=== PATIENT | male | born 1980 | race American Indian/Alaskan Native ===

== ENCOUNTER 2020-07-30 12:47 | Emergency (ER) | payer SELFPAY ==
[2020-07-30 13:04] VITALS: BP 152/96
--- NOTE | 2020-07-30 13:33 | Emergency Department Report ---
Blank Doc - Documentation Documentation: 39-year-old male that presents with chest pain with SOB. Also has headache, c ough, and loss of smell/taste. This initial assessment/diagnostic orders/clinical plan/treatment(s) is/are subject to change based on patient's health status, clinical progression and re- assessment by fellow clinical providers in the ED. Further treatment and workup at subsequent clinical providers discretion. Patient/guardians urged not to elope from the ED as their condition may be serious if not clinically assessed and managed. Initial orders include: 1- Patient sent to [facility] for further evaluation and treatment 2- cardiac workup
[2020-07-30] MEDS ORDERED: methylPREDNISolone Sod Succinate 125 MG/2 ML INJ IM ONE (14:18)
[2020-07-30] MEDS ORDERED: IPRATROPIUM/ALBUTEROL SULFATE 3 ML AMPUL.NEB IH ONE (14:18)
--- NOTE | 2020-07-30 14:22 | Emergency Department Report ---
- General Chief Complaint: Chest Pain Stated Complaint: POSS COVID Time Seen by Provider: 07/30/20 13:30 Source: patient Mode of arrival: Ambulatory Limitations: No Limitations - History of Present Illness Initial Comments: 39-year-old male with history of tobacco abuse, but otherwise no known significant past medical history presents to the ER today complaint of URI symptoms with cough. Patient states that his symptoms started about 2 days ago. He reports a productive cough with associated shortness of breath, wheezing, chills, diffuse anterior chest pain when he coughs, and diarrhea. He also reports associated rhinorrhea and nasal congestion and headache. Patient denies any ill contacts, no known COVID-19 contacts or recent travel. Patient states he looked up his symptoms on the Internet, and it stated that he had symptoms similar to COVID-19 and therefore came in to get checked. MD Complaint: cough -: Gradual, days(s) (2) - Related Data Previous Rx's Medication Instructions Recorded Last Taken Type Albuterol Mdi (or & Nicu Only) 2 puff IH QID PRN #8.5 gram 07/30/20 Unknown Rx [ProAir HFA Inhaler] Azithromycin [Zithromax Z-MARLEN] 250 mg PO DAILY #5 tab 07/30/20 Unknown Rx Benzonatate [Tessalon Perles] 100 mg PO Q8HR PRN #30 capsule 07/30/20 Unknown Rx predniSONE [Deltasone] 60 mg PO QDAY #12 tab 07/30/20 Unknown Rx Allergies Allergy/AdvReac Type Severity Reaction Status Date / Time No Known Allergies Allergy Unverified 07/30/20 13:01 ED Review of Systems ROS: Stated complaint: POSS COVID Other details as noted in HPI Comment: All other systems reviewed and negative Constitutional: chills. denies: diaphoresis, fever, weakness ENT: congestion, other (Rhinorrhea). denies: throat pain, dental pain, hearing loss, epistaxis Respiratory: cough, shortness of breath, wheezing Cardiovascular: chest pain (With cough) Gastrointestinal: diarrhea. denies: abdominal pain, nausea, vomiting Genitourinary: denies: urgency, dysuria Musculoskeletal: denies: back pain, joint swelling, arthralgia Skin: denies: rash, lesions Neurological: headache Psychiatric: denies: anxiety, depression Hematological/Lymphatic: denies: easy bleeding, easy bruising ED Past Medical Hx - Past Medical History Previous Medical History?: No - Surgical History Past Surgical History?: No - Social History Smoking Status: Current Every Day Smoker Substance Use Type: None - Medications Home Medications: Home Medications Medication Instructions Recorded Confirmed Last Taken Type Albuterol Mdi (or & Nicu Only) 2 puff IH QID PRN #8.5 gram 07/30/20 Unknown Rx [ProAir HFA Inhaler] Azithromycin [Zithromax Z-MARLEN] 250 mg PO DAILY #5 tab 07/30/20 Unknown Rx Benzonatate [Tessalon Perles] 100 mg PO Q8HR PRN #30 capsule 07/30/20 Unknown Rx predniSONE [Deltasone] 60 mg PO QDAY #12 tab 07/30/20 Unknown Rx ED Physical Exam - General Limitations: No Limitations General appearance: alert, in no apparent distress - Head Head exam: Present: atraumatic, normocephalic, normal inspection - Eye Eye exam: Present: normal appearance, PERRL, EOMI Pupils: Present: normal accommodation - ENT ENT exam: Present: normal exam, mucous membranes moist - Neck Neck exam: Present: normal inspection, full ROM, lymphadenopathy. Absent: meningismus - Respiratory Respiratory exam: Present: wheezes (Diffuse expiratory wheezing noted). Absent: respiratory distress - Cardiovascular Cardiovascular Exam: Present: regular rate, normal rhythm - GI/Abdominal GI/Abdominal exam: Present: soft. Absent: distended, tenderness - Neurological Exam Neurological exam: Present: alert, oriented X3, CN II-XII intact, normal gait - Psychiatric Psychiatric exam: Present: normal affect, normal mood - Skin Skin exam: Present: intact ED Course Vital Signs 07/30/20 07/30/20 13:03 15:04 Temperature 98.0 F Pulse Rate 97 H Pulse Rate [ 97 H Anterior Bilateral Throughout] Respiratory 18 Rate Respiratory 18 Rate [Anterior Bilateral Throughout] Blood Pressure 152/96 [Right] O2 Sat by Pulse 96 Oximetry ED Medical Decision Making - Radiology Data Radiology results: report reviewed - Medical Decision Making [id number] --39-year-old male with history of tobacco abuse, but otherwise no known significant past medical history presents to the ER today complaint of URI symptoms with cough. Patient states that his symptoms started about 2 days ago. He reports a productive cough with associated shortness of breath, wheezing, chills, diffuse anterior chest pain when he coughs, and diarrhea. He also reports associated rhinorrhea and nasal congestion and headache. Patient denies any ill contacts, no known COVID-19 contacts or recent travel. Patient states he looked up his symptoms on the Internet, and it stated that he had symptoms similar to COVID-19 and therefore came in to get checked. Patient wheezing has improved after neb treatment. Except for NARAYAN he reports feeling better (SOB improved, chest tightness improved) after neb treatment. Pt vs remained stable throught stay. He is not toxic or ill appearing, appears well hydrated and currently not in any acute respiratory distress. CXR reviewed and show nothing acute. His history, exam, and current condition does not suggest an infectious process such as meningitis, severe pneumonia, epiglottis, periotonsillar abscess or retropharyngeal abscess, sepsis, severe bacterial infection, ACS, PE, or dissection requiring further treatment, further testing, admission or emergent consultation at this time. Discussed suspected diagnosis and treatment plan with patient. Patient expressed onset of instructions and agrees with plan. Patient was stable at time of discharge. Critical care attestation.: If time is entered above; I have spent that time in minutes in the direct care of this critically ill patient, excluding procedure time. ED Disposition Clinical Impression: Bronchitis, Upper respiratory infection Disposition: DC-01 TO HOME OR SELFCARE Is pt being admited?: No Does the pt Need Aspirin: No Condition: Stable Instructions: Chronic Bronchitis (ED), Upper Respiratory Infection, Adult, [id number], Acute Bronchitis, Adult Additional Instructions: Take the medication prescribed to you as directed. Use inhaler as instructed. I recommend that you try to stop smoking. I also recommend that you follow-up with local health department, [place] urgent [facility], [facility] drive-through or primary care doctor for COVID-19 testing. Return to the ER if your symptoms worsens or changes in any way. Prescriptions: predniSONE [Deltasone] 60 mg PO QDAY #12 tab Albuterol Mdi (or & Nicu Only) [ProAir HFA Inhaler] 2 puff IH QID PRN #8.5 gram PRN Reason: Shortness Of Breath Benzonatate [Tessalon Perles] 100 mg PO Q8HR PRN #30 capsule PRN Reason: Cough Azithromycin [Zithromax Z-MARLEN] 250 mg PO DAILY #5 tab Referrals: PRIMARY CARE, [Primary Care Provider] - 3-5 Days EDU SANTOS MD [Staff Physician] - 3-5 Days Forms: Work/School Release Form(ED) Time of Disposition: 16:02
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
[2020-07-30] MEDS ORDERED: KETOROLAC 10 MG TAB PO ONE (15:58)
== END 2020-07-30 16:18 | disposition home or self-care (01) ==
LOC: ED 12:47
DX: J06.9 Acute upper respiratory infection, unspecified (principal); J20.9 Acute bronchitis, unspecified; F17.200 Nicotine dependence, unspecified, uncomplicated
CPT/HCPCS: 71046; 94644; 96372; 99282; J2930